=== PATIENT | male | born 1975 | race Asian ===

== ENCOUNTER 2023-07-08 19:14 | Emergency (ER) | payer MEDICAID ==
[~2023-07-08] VITALS: Ht 170.2 cm; Wt 77.0 kg
[2023-07-08 19:14] VITALS: BP 117/81; PULSE 69; RESP 18; TEMP 98.5
[2023-07-08 20:10] VITALS: O2SAT 98
[2023-07-08] MEDS ORDERED: AUG875T PO ×3 (20:26→21:11)
[2023-07-08] MEDS ORDERED: IBUP1TAB5 PO ×3 (20:26→21:11)
[2023-07-08] MEDS ORDERED: MUPI2OIN2 EX ×3 (20:26→21:11)
[2023-07-08] MEDS ORDERED: AMOXICILLIN/CLAVUL 875 MG TAB PO ONE (20:30)
[2023-07-08] MEDS ORDERED: TETANUS-DIPTH-ACEL PERTUSSIS 0.5ML SYR Tdap IM ONE (20:30)
[2023-07-08] MEDS: NEOMYCIN-BACITRACIN-POLYM 15GM TOP OINT TOP SCH ×3 (21:14→21:45)
== END 2023-07-08 23:56 | disposition home or self-care (01) ==
LOC: ER 19:14
DX: S61.213A Laceration without foreign body of left middle finger without damage to nail, initial encounter (principal); Z79.899 Other long term (current) drug therapy; W54.0XXA Bitten by dog, initial encounter; Y93.89 Activity, other specified; Y92.89 Other specified places as the place of occurrence of the external cause; Y99.8 Other external cause status
CPT/HCPCS: 73130; 90471; 90715